=== PATIENT | female | born 1940 | race Caucasian/White ===

== ENCOUNTER 2020-07-24 19:01 | Outpatient (REF) | payer SELFPAY ==
[2020-07-26 16:11] LABS: COVID-19 RT-PCR UVMMC Result Negative (Negative)
== END 2020-07-24 19:21 ==
LOC: LBN 19:01
PROVIDERS: Visit Provider Nurse Practitioner Adult Health
DX: Z11.52 Encounter for screening for COVID-19 (principal)
CPT/HCPCS: U0003

== ENCOUNTER 2020-07-28 17:49 | Outpatient (REF) | payer MEDICARE, SELFPAY ==
[2020-07-30 16:57] LABS: COVID-19 RT-PCR Result Not Detected ((See Note))
== END 2020-07-28 18:09 ==
LOC: LBN 17:49
PROVIDERS: Visit Provider Nurse Practitioner Adult Health
DX: Z11.52 Encounter for screening for COVID-19 (principal)
CPT/HCPCS: U0003